=== PATIENT | male | born 1975 | race Caucasian/White ===

== ENCOUNTER 2023-11-13 13:59 | Emergency (ER) | payer SELFPAY ==
[2023-11-13] MEDS ORDERED: predniSONE 20 MG TAB ONE (15:25)
[2023-11-13] MEDS ORDERED: Ipratropium/Albuterol 3 ML NEB ONE (15:30)
[2023-11-13 15:49] LABS: #Basophils 0.04 10x3/uL (0.0-0.2); %Basophils 0.5 % (0.0-1.0); %Eosinophils 3.3 % (0.0-10.0); %Lymphocytes 9.1 % (21.0-51.0); %Monocytes 9.5 % (0.0-10.0); %Neutrophils 77.3 % (42.0-75.0); Hematocrit 38.8 % (42.0-52.0); Mean Corpuscular HGB CONC 30.9 g/dL (32.0-36.0); Mean Corpuscular Hemoglobin 25.2 pg (27.0-31.0); Mean Corpuscular Volume 81.5 fL (78.0-98.0); Mean Platelet Volume 9.4 fL (7.4-10.4); Platelet Count 282 10x3/uL (130-400); RBC Distribution Width 14.6 % (11.5-14.5); Red Blood Cell (RBC) Count 4.76 mill/uL (4.70-6.10)
[2023-11-13 16:06] LABS: ALT (SGPT) 19 U/L (8-55); AST (SGOT) 20 U/L (5-34); Alkaline Phosphatase 100 U/L (40-110); Anion Gap 14 mmol/L (10-20); BUN (Urea Nitrogen) 13 mg/dL (8.9-20.6); Bilirubin, Total 0.2 mg/dL (0.2-1.2); Calc. Creatinine Clearance 0 mL/min (70-130); Calcium 8.8 mg/dL (7.8-10.44); Carbon Dioxide 22 mmol/L (22-29); Chloride 105 mmol/L (98-107); Estimated GFR 81; Globulin 2.8 g/dL (2.4-3.5); Glucose 129 mg/dL (70-105); Potassium 4.3 mmol/L (3.5-5.1); Protein, Total 6.8 g/dL (6.0-8.3); Sodium 137 mmol/L (136-145)
[2023-11-13 16:10] LABS: Troponin I Less than 0.010 ng/mL (< 0.028)
== END 2023-11-13 16:34 | disposition home or self-care (01) ==
LOC: ERS 13:59
DX: I10 Essential (primary) hypertension (principal); R06.2 Wheezing; R05.9 Cough, unspecified; F17.290 Nicotine dependence, other tobacco product, uncomplicated
CPT/HCPCS: 36415; 71046; 80053; 84484; 85025; 93005; 94640; 94760; J7512; J7620

== ENCOUNTER 2024-01-19 10:25 | Day surgery (SDC) | payer OTHER ==
[2024-01-18 12:28] VITALS: BMI 28.1
[2024-01-19] MEDS ORDERED: fentaNYL 50 mcg/mL 1 mL Vial ONE (11:55)
[2024-01-19] MEDS ORDERED: Bupivacaine PF 0.5% 30 ML VIAL ONE ×2 (11:55→11:58)
[2024-01-19] MEDS ORDERED: Midazolam HCl 2 mg/2 ml Vial ONE (11:55)
[2024-01-19] MEDS ORDERED: EPINEPHrine 1 MG/ML VIAL ONE (11:58)
[2024-01-19] MEDS ORDERED: CEFAZOLIN 2 GM VIAL ONE (12:04)
[2024-01-19] MEDS ORDERED: Sodium Chloride 0.9% 100 ML ONE (12:04)
[2024-01-19] MEDS ORDERED: Lidocaine 2% PF 5 ML VIAL ONE (12:28)
[2024-01-19] MEDS ORDERED: PROPOFOL 20 ML ONE ×2 (12:28→12:43)
[2024-01-19] MEDS ORDERED: Ketorolac Tromethamine 30 MG (1 mL) VIAL ONE (12:49)
[2024-01-19] MEDS ORDERED: Dexamethasone 20 MG/5 ML VIAL ONE (12:49)
[2024-01-19] MEDS ORDERED: Ondansetron PF 4 MG/2 ML Vial ONE (12:49)
[2024-01-19] MEDS ORDERED: ePHEDrine Sulfate 50 MG/10 ML VIAL ONE (12:52)
[2024-01-19] MEDS ORDERED: PHENYLEPHRINE-NS 100 MCG/ML 10 ML SYRINGE ONE (13:03)
[2024-01-19] MEDS ORDERED: HYDROmorphone 2 MG/ML VIAL ONE (13:28)
== END 2024-01-19 15:16 | disposition home or self-care (01) ==
LOC: SDC 10:25
PROVIDERS: ATTEND Orthopaedic Surgery
PROC: 0QSK04Z Reposition Left Fibula with Internal Fixation Device, Open Approach (ICD-10-PCS; principal; 2024-01-19)
DX: S82.832A Other fracture of upper and lower end of left fibula, initial encounter for closed fracture (principal); S93.432A Sprain of tibiofibular ligament of left ankle, initial encounter; I10 Essential (primary) hypertension; K21.9 Gastro-esophageal reflux disease without esophagitis; Z87.891 Personal history of nicotine dependence; Z79.899 Other long term (current) drug therapy; V86.96XA Unspecified occupant of dirt bike or motor/cross bike injured in nontraffic accident, initial encounter
CPT/HCPCS: C1713; J0171; J0665; J1100; J1170; J1885; J2001; J2250; J2405; J2704; J3010; J3490